=== PATIENT | female | born 1990 | race Caucasian/White ===

== ENCOUNTER 2017-02-05 12:18 | Inpatient (IN) | payer OTHER ==
[2017-02-05] MEDS ORDERED: SODIUM CHLORIDE 0.9% 1,000 ML IV STA (12:41)
[2017-02-05] MEDS ORDERED: RX INFO: IV CONTRAST WAS GIVEN 1 EACH MISC MISCELLANE PRN (12:41)
[2017-02-05] MEDS ORDERED: ACETAMINOPHEN TAB 500 MG TAB PO STA (12:49)
[2017-02-05] MEDS ORDERED: ONDANSETRON ODT 4 MG TAB PO STA (12:49)
[2017-02-05] MEDS ORDERED: HYDROmorphone 1 MG/ML 1 ML SYRINGE IVP STA (12:49)
--- NOTE | 2017-02-05 12:55 | ED ---
Abdominal Pain HPI - General Source: patient, RN notes reviewed Mode of arrival: ambulatory Limitations: no limitations <Cirilo Guerin - Last Filed: 02/05/17 14:14> <Luis Carlos Novak - Last Filed: 02/05/17 14:37> - General Chief Complaint: Abdominal Pain Stated Complaint: Abd/Side Pain Time Seen by Provider: 02/05/17 12:41 - History of Present Illness Initial Comments: 27-year-old female presents emergency Department for right-sided abdominal pain , not feeling well. She states that symptoms started on Monday which she notes her urine was darker than usual and have followed her. She denies any dysuria. Patient denies any vaginal bleeding or vaginal discharge. Denies any chance . Patient states she does have mental cycle 2 weeks ago. Patient states that she did not know she had a fever at home with his febrile here. She has not taken Tylenol or Motrin. She states that movement makes her abdominal pain worse. She states it does radiate to her right flank, back region also. She has no history kidney stones. 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 (Cirilo Guerin) - Related Data Home Medications Medication Instructions Recorded Confirmed Ibuprofen [Motrin] 1,000 mg PO Q6HR PRN 02/05/17 02/05/17 Allergies Allergy/AdvReac Type Severity Reaction Status Date / Time morphine Allergy Unknown Verified 02/05/17 12:39 Review of Systems ROS Other: All systems not noted in ROS Statement are negative. <Cirilo Guerin - Last Filed: 02/05/17 14:14> ROS Other: All systems not noted in ROS Statement are negative. <Luis Carlos Novak - Last Filed: 02/05/17 14:37> ROS Statement: Those systems with pertinent positive or pertinent negative responses have been documented in the HPI. Past Medical History Past Medical History: No Reported History History of Any Multi-Drug Resistant Organisms: None Reported Past Surgical History: Bowel Resection Past Psychological History: No Psychological Hx Reported Smoking Status: Current every day smoker Past Alcohol Use History: Occasional Past Drug Use History: None Reported <Cirilo Guerin - Last Filed: 02/05/17 14:14> General Exam Limitations: no limitations General appearance: alert, in no apparent distress Respiratory exam: Present: normal lung sounds bilaterally. Absent: respiratory distress, wheezes, rales, rhonchi, stridor Cardiovascular Exam: Present: normal rhythm, tachycardia, normal heart sounds. Absent: systolic murmur, diastolic murmur, rubs, gallop, clicks GI/Abdominal exam: Present: soft, tenderness (Moderate right-sided abdominal tenderness), normal bowel sounds. Absent: distended, guarding, rebound, rigid Back exam: Present: CVA tenderness (R). Absent: CVA tenderness (L) Neurological exam: Present: alert, oriented X3, CN II-XII intact Skin exam: Present: warm, dry, intact, normal color. Absent: rash <Cirilo Guerin - Last Filed: 02/05/17 14:14> Course <Cirilo Guerin - Last Filed: 02/05/17 14:14> <Luis Carlos Novak - Last Filed: 02/05/17 14:37> Vital Signs 02/05/17 02/05/17 12:23 14:13 Temperature 101.2 F H 99.4 F Pulse Rate 124 H 72 Respiratory 18 18 Rate Blood Pressure 120/72 99/57 O2 Sat by Pulse 99 95 Oximetry - Reevaluation(s) Reevaluation #1: 02/05/17 14:36 The patient initially was offered admission versus going home she doesn't want to go home but now was seen in the hospital this is reasonable. Patient does have pyelonephritis. I did review the workup and do agree with the disposition. I did discuss case with the hospitalist . Patient will be admitted and continued on Rocephin and IV fluids. (Luis Carlos Novak) Medical Decision Making - Lab Data Result diagrams: 02/05/17 13:05 02/05/17 13:05 <Cirilo Guerin - Last Filed: 02/05/17 14:14> - Lab Data Result diagrams: 02/05/17 13:05 02/05/17 13:05 <Luis Carlos Novak - Last Filed: 02/05/17 14:37> - Lab Data Lab Results 02/05/17 02/05/17 02/05/17 Range/Units 12:58 12:58 13:05 WBC (3.8-10.6) k/uL RBC (3.80-5.40) m/uL Hgb (11.4-16.0) gm/dL Hct (34.0-46.0) % MCV (80.0-100.0) fL MCH (25.0-35.0) pg MCHC (31.0-37.0) g/dL RDW (11.5-15.5) % Plt Count (150-450) k/uL Neutrophils % % Lymphocytes % % Monocytes % % Eosinophils % % Basophils % % Neutrophils # (1.3-7.7) k/uL Lymphocytes # (1.0-4.8) k/uL Monocytes # (0-1.0) k/uL Eosinophils # (0-0.7) k/uL Basophils # (0-0.2) k/uL Sodium 137 (137-145) mmol/L Potassium 3.9 (3.5-5.1) mmol/L Chloride 101 (98-107) mmol/L Carbon Dioxide 26 (22-30) mmol/L Anion Gap 10 mmol/L BUN 10 (7-17) mg/dL Creatinine 0.77 (0.52-1.04) mg/dL Est GFR (MDRD) Af Amer >60 (>60 ml/min/1.73 sqM) Est GFR (MDRD) Non-Af >60 (>60 ml/min/1.73 sqM) Glucose 120 H (74-99) mg/dL Plasma Lactic Acid Paolo (0.7-2.0) mmol/L Calcium 8.9 (8.4-10.2) mg/dL Total Bilirubin 0.9 (0.2-1.3) mg/dL AST 20 (14-36) U/L ALT 24 (9-52) U/L Alkaline Phosphatase 82 (38-126) U/L Total Protein 7.2 (6.3-8.2) g/dL Albumin 3.9 (3.5-5.0) g/dL Amylase 49 (30-110) U/L Lipase 37 (23-300) U/L Urine Color Yellow Urine Appearance Cloudy H (Clear) Urine pH 6.0 (5.0-8.0) Ur Specific [place] 1.015 (1.001-1.035) Urine Protein 1+ H (Negative) Urine Glucose (UA) Negative (Negative) Urine Ketones Negative (Negative) Urine Blood Moderate H (Negative) Urine Nitrite Positive H (Negative) Urine Bilirubin Negative (Negative) Urine Urobilinogen 2.0 (<2.0) mg/dL Ur Leukocyte Esterase Large H (Negative) Urine RBC 11 H (0-5) /hpf Urine WBC >182 H (0-5) /hpf Urine WBC Clumps Many H (None) /hpf Ur Squamous Epith Cells 4 (0-4) /hpf Urine Bacteria Moderate H (None) /hpf Urine Mucus Occasional H (None) /hpf Urine HCG, Qual Not Detected (Not Detectd) 02/05/17 02/05/17 Range/Units 13:05 13:05 WBC 17.0 H (3.8-10.6) k/uL RBC 4.78 (3.80-5.40) m/uL Hgb 14.8 (11.4-16.0) gm/dL Hct 43.9 (34.0-46.0) % MCV 91.7 (80.0-100.0) fL MCH 31.0 (25.0-35.0) pg MCHC 33.8 (31.0-37.0) g/dL RDW 13.4 (11.5-15.5) % Plt Count 202 (150-450) k/uL Neutrophils % 87 % Lymphocytes % 4 % Monocytes % 6 % Eosinophils % 2 % Basophils % 1 % Neutrophils # 14.9 H (1.3-7.7) k/uL Lymphocytes # 0.7 L (1.0-4.8) k/uL Monocytes # 1.0 (0-1.0) k/uL Eosinophils # 0.3 (0-0.7) k/uL Basophils # 0.1 (0-0.2) k/uL Sodium (137-145) mmol/L Potassium (3.5-5.1) mmol/L Chloride (98-107) mmol/L Carbon Dioxide (22-30) mmol/L Anion Gap mmol/L BUN (7-17) mg/dL Creatinine (0.52-1.04) mg/dL Est GFR (MDRD) Af Amer (>60 ml/min/1.73 sqM) Est GFR (MDRD) Non-Af (>60 ml/min/1.73 sqM) Glucose (74-99) mg/dL Plasma Lactic Acid [place] 1.2 (0.7-2.0) mmol/L Calcium (8.4-10.2) mg/dL Total Bilirubin (0.2-1.3) mg/dL AST (14-36) U/L ALT (9-52) U/L Alkaline Phosphatase (38-126) U/L Total Protein (6.3-8.2) g/dL Albumin (3.5-5.0) g/dL Amylase (30-110) U/L Lipase (23-300) U/L Urine Color Urine Appearance (Clear) Urine pH (5.0-8.0) Ur Specific [place] (1.001-1.035) Urine Protein (Negative) Urine Glucose (UA) (Negative) Urine Ketones (Negative) Urine Blood (Negative) Urine Nitrite (Negative) Urine Bilirubin (Negative) Urine Urobilinogen (<2.0) mg/dL Ur Leukocyte Esterase (Negative) Urine RBC (0-5) /hpf Urine WBC (0-5) /hpf Urine WBC Clumps (None) /hpf Ur Squamous Epith Cells (0-4) /hpf Urine Bacteria (None) /hpf Urine Mucus (None) /hpf Urine HCG, Qual (Not Detectd) Disposition Time of Disposition: 14:16 <Cirilo Guerin - Last Filed: 02/05/17 14:14> <Luis Carlos Novak - Last Filed: 02/05/17 14:37> Clinical Impression: Pyelonephritis Disposition: ADMITTED IP TO THIS HOSP Condition: Good Referrals: Dwight King DO [Primary Care Provider] - 1-2 days
[2017-02-05 13:10] LABS: Appearance,Urine Cloudy (Clear); Bacteria,Urine Moderate /hpf; Bilirubin,Urine Negative (Negative); Glucose,Urine (UA) Negative (Negative); Ketones,Urine Negative (Negative); Leukocyte Esterase,Urine Large (Negative); Mucus,Urine Occasional /hpf; Nitrite,Urine Positive (Negative); Particle Count 120340; Protein,Urine 1+ (Negative); RBC,Urine 11 /hpf (0-5); Specific Gravity,Urine 1.015 (1.001-1.035); Squamous Epithelial Cell,Urine 4 /hpf (0-4); UA Billing (MACRO vs. MICRO) MICRO; WBC,Urine >182 /hpf (0-5)
[2017-02-05 13:21] LABS: Basophils # (A) 0.1 k/uL (0-0.2); Basophils % (A) 1 %; CH 30.7; CHCM 33.6; Eosinophils # (A) 0.3 k/uL (0-0.7); Eosinophils % (A) 2 %; HCT 43.9 % (34.0-46.0); HDW 2.16; HGB 14.8 gm/dL (11.4-16.0); Luc # (Auto) 0.14; Luc % (Auto) 1; Lymphocytes # (A) 0.7 k/uL (1.0-4.8); Lymphocytes % (A) 4 %; MCHC 33.8 g/dL (31.0-37.0); MCV 91.7 fL (80.0-100.0); Mean Platelet Volume 7.6; Monocytes % (A) 6 %; Neutrophils # (A) 14.9 k/uL (1.3-7.7); Neutrophils % (A) 87 %; RBC 4.78 m/uL (3.80-5.40); RDW 13.4 % (11.5-15.5); WBC (Perox) 17.18
[2017-02-05 13:29] LABS: ALT 24 U/L (9-52); AST 20 U/L (14-36); Alkaline Phosphatase 82 U/L (38-126); Amylase 49 U/L (30-110); Anion Gap 10 mmol/L; Blood Urea Nitrogen 10 mg/dL (7-17); Calcium 8.9 mg/dL (8.4-10.2); Carbon Dioxide 26 mmol/L (22-30); Chloride 101 mmol/L (98-107); Glucose 120 mg/dL (74-99); Non-African American GFR(MDRD) >60 (>60 ml/min/1.73 sqM); Potassium 3.9 mmol/L (3.5-5.1); Sodium 137 mmol/L (137-145); Total Bilirubin 0.9 mg/dL (0.2-1.3); Total Protein 7.2 g/dL (6.3-8.2)
--- NOTE | 2017-02-05 13:56 | CT ---
EXAMINATION TYPE: CT abdomen pelvis w con DATE OF EXAM: 02/05/2017 1:45 PM COMPARISON: NONE HISTORY: Patient complains of right flank pain x2 days. CT DLP: 442.2 mGycm Automated exposure control for dose reduction was used. TECHNIQUE: Helical acquisition of images was performed from the lung bases through the pelvis. CONTRAST: Performed without Oral Contrast and with IV Contrast, patient injected with 100 mL of Omnipaque 300. FINDINGS: The lung bases are clear. There is no pleural effusion. Liver spleen pancreas gallbladder appear normal. Bile ducts are not dilated. There is no adrenal mass . There is a 2 cm area of hypodensity in the lateral right kidney. There is also a poorly marginated 3 cm area of hypodensity in the posterior right kidney and also 2 cm in the posterior lower pole righ t kidney. The left kidney shows normal contrast opacification. There is no hydronephrosis. There is no retroperitoneal adenopathy. There is no ascites. There is alba y minimal right side perinephric edema. I see no intestinal wall thickening. There are no dilated loops. Appendix is not seen. I see no sign of appendicitis. Bladder distends smoothly. There is no sign of a pelvic mass. Uterus is retroverted. The bony structures are intact. IMPRESSION: THERE ARE ARE MULTIPLE PATCHY AREAS OF DECREASED ENHANCEMENT IN THE RIGHT KIDNEY. NO HYDRONEPHROSIS. MINIMAL RIGHT-SIDED PERINEPHRIC EDEMA. THIS IS CONSISTENT WITH MULTIFOCAL PYELONEPHRITIS.
[2017-02-05] MEDS ORDERED: ONDANSETRON 4 MG/2 ML VIAL IVP PRN (14:17)
[2017-02-05] MEDS ORDERED: NALOXONE 0.4 MG/ML 1 ML VIAL IV PRN (14:17)
[2017-02-05] MEDS ORDERED: IBUPROFEN 400 MG TAB PO PRN (14:17)
[2017-02-05] MEDS: SODIUM CHLORIDE 0.9% 1,000 ML IV SCH ×2 (14:55→18:11)
[2017-02-05 15:46] VITALS: BMI 25.7
[2017-02-05] MEDS: HYDROmorphone 1 MG/ML 1 ML SYRINGE IV PRN ×2 (16:15→20:23)
[2017-02-06] MEDS: ACETAMINOPHEN TAB 325 MG TAB PO PRN ×3 (00:21→15:28)
[2017-02-06] MEDS: HYDROmorphone 1 MG/ML 1 ML SYRINGE IV PRN ×3 (00:22→10:53)
[2017-02-06] MEDS: SODIUM CHLORIDE 0.9% 1,000 ML IV SCH ×4 (04:14→23:00)
[2017-02-06] MEDS: KETOROLAC 30 MG/ML 1 ML VIAL IVP PRN ×2 (15:28→21:34)
--- NOTE | 2017-02-06 16:26 | HP ---
DATE OF ADMISSION: 02/05/2017 The patient is a pleasant 27 -year-old female who came in with complaints of right-sided flank pain sharp in nature radiating to the groin area. The patient's symptoms started on Monday, resolved and started again yesterday and patient was complaining of pain about 8/10 in severity, sharp in nature, radiation as mentioned above. Patient was found to have pyelonephritis in the right side with perinephric stranding and patient was started on Rocephin and was subsequently admitted with IV fluids and patient still has pain but significantly improved. Patient had fevers here. Patient has high-grade fever of 103. Patient still has low-grade fevers today. Urine cultures and blood cultures were ordered and the results of which are pending. Actually I do have urine culture, which is showing gram-negative bacilli. Patient had urinary tract infection 3 or 4 times in the past. Patient is sexually active. Denied any nausea, vomiting, denied any diarrhea. Patient was having dysuria as well. Home medications include: Ibuprofen. ROS: All other systems were reviewed and were negative. PAST MEDICAL HISTORY: None. PAST SURGICAL HISTORY: Bowel resection. SOCIAL HISTORY: The patient does smoke. Denied any alcohol abuse or any drug abuse. FAMILY HISTORY: Significant for hypertension in the family, rheumatoid arthritis and lupus in the family. PHYSICAL EXAMINATION: Temperature 98.8, pulse of 108, respiratory of 18, blood pressure is 117/63, saturating at 96% on room air. GENERAL: The patient is alert and oriented x3, not in any acute distress. Well developed, well nourished. HEENT: Pupils are round and equally reacting to light. EOMI. No scleral icterus. No conjunctival pallor. Normocephalic, atraumatic. No pharyngeal erythema. No thyromegaly. CARDIOVASCULAR: S1 and S2 present. No murmurs, rubs, or gallops. PULMONARY: Chest is clear to auscultation, no wheezing or crackles. ABDOMEN: Patient has right costovertebral angle tenderness. MUSCULOSKELETAL: No joint swelling or deformity. EXTREMITIES: No cyanosis, clubbing, or pedal edema. NEUROLOGICAL: Gross neurological examination did not reveal any focal deficits. SKIN: No rashes. LABORATORY DATA: CT of the abdomen as mentioned above and WBC count 17,000. Urine microbiology as mentioned above. ASSESSMENT AND PLAN: 1. Severe sepsis secondary to urinary tract infection and pyelonephritis. Patient is on antibiotics IV fluids, which will be continued. I do not have a lactic acid available at this point of time and we will continue with present medications. 2. Tachycardia secondary to sepsis as mentioned above. 3. Leukocytosis secondary to sepsis as mentioned above. Plan is to continue the present antibiotics and patient is afebrile. By tomorrow if we get the urine culture and sensitivities patient can be discharged tomorrow on antibiotics as per urine culture sensitivities. DIMPLED
[2017-02-06] MEDS: FAMOTIDINE 20 MG TAB PO SCH (21:34)
[2017-02-07] MEDS: ACETAMINOPHEN TAB 325 MG TAB PO PRN (00:16)
[2017-02-07] MEDS: SODIUM CHLORIDE 0.9% 1,000 ML IV SCH ×2 (02:40→09:11)
[2017-02-07] MEDS: KETOROLAC 30 MG/ML 1 ML VIAL IVP PRN ×2 (05:33→12:07)
[2017-02-07] MEDS: FAMOTIDINE 20 MG TAB PO SCH (07:21)
[2017-02-07 07:30] LABS: Anion Gap 8 mmol/L; Blood Urea Nitrogen 8 mg/dL (7-17); Calcium 8.3 mg/dL (8.4-10.2); Carbon Dioxide 24 mmol/L (22-30); Chloride 109 mmol/L (98-107); Glucose 101 mg/dL (74-99); Non-African American GFR(MDRD) >60 (>60 ml/min/1.73 sqM); Potassium 3.6 mmol/L (3.5-5.1); Sodium 141 mmol/L (137-145)
[2017-02-07 07:32] LABS: CHCM 32.7; HCT 32.8 % (34.0-46.0); HDW 2.29; MCH 30.5 pg (25.0-35.0); MCV 92.4 fL (80.0-100.0); RBC 3.55 m/uL (3.80-5.40); RDW 13.4 % (11.5-15.5); WBC 6.4 k/uL (3.8-10.6)
[2017-02-07 07:34] LABS: HGB 10.8 gm/dL (11.4-16.0)
[2017-02-07 11:42] VITALS: RESP 20
[2017-02-07] MEDS ORDERED: HYDROcodone/APAP 5-325MG 1 EACH TAB PO PRN (14:30)
[2017-02-07 16:22] VITALS: BP 113/61; PULSE 57; TEMP 98
--- NOTE | 2017-02-10 14:28 | DS ---
DATE OF ADMISSION: 02/05/2017 DATE OF DISCHARGE: 02/07/2017 DISCHARGE DIAGNOSES: 1. Severe sepsis secondary to urinary tract infection and pyelonephritis. 2. Acute right multifocal pyelonephritis. 3. Sinus tachycardia secondary to infection. 4. Leukocytosis secondary to infection, improved now. 5. Escherichia coli urinary tract infection. HOSPITAL COURSE: Ms. Matos is a 27-year-old female without significant past medical history, admitted to the hospital with complaints of abdominal pain, radiating from right loin to groin which is sharp and associated with subjective fever. Patient had a CT of abdomen and pelvis, was done in the ER showed right-sided multifocal pyelonephritis. Patient was started on antibiotics in the form of ceftriaxone. Patient did improve symptomatically and antibiotics have been changed to ciprofloxacin for a total duration of 14 days. Patient is symptomatically much improved now. No complaints of abdominal pain and tolerating p.o. diet and ambulating well. Patient was advised to follow with a primary care physician. DISCHARGE PHYSICAL EXAMINATION: A 27-year-old female, lying in bed comfortably, awake, alert and oriented x3. No focal deficits. VITALS: Blood pressure is 113/61, pulse is 57, respirations 20, temperature afebrile, pulse ox 97% on room air. LABORATORY DATA: Reviewed. Discharge physical examination done. Discharge medications include: 1. Ibuprofen 1000 mg p.o. q.6 hourly p.r.n. for pain. 2. Ciprofloxacin 500 mg p.o. q.12 hours for 12 days. 3. [place] 5/325 one tablet p.o. q.6 hourly p.r.n. for pain. Patient will be discharged home in a stable condition. Activity as tolerated. Regular diet. Follow up with Dr. Dwight King.
== END 2017-02-07 17:15 | disposition home or self-care (01) | DRG 872 ==
LOC: EC 12:18 → 6PED 14:35
PROVIDERS: ADMIT Internal Medicine; ATTEND Internal Medicine
DX: A41.9 Sepsis, unspecified organism (principal); Q43.1 Hirschsprung's disease; N12 Tubulo-interstitial nephritis, not specified as acute or chronic; N39.0 Urinary tract infection, site not specified; F17.200 Nicotine dependence, unspecified, uncomplicated; R65.20 Severe sepsis without septic shock; Z82.49 Family history of ischemic heart disease and other diseases of the circulatory system; B96.20 Unspecified Escherichia coli [E. coli] as the cause of diseases classified elsewhere
CPT/HCPCS: 36415; 74177; 80048; 80053; 81001; 81025; 82150; 83605; 83690; 85025; 85027; 87040; 87077; 87086; 87186; 96361; 96365; 96375; 99285

== ENCOUNTER 2019-06-25 11:40 | Emergency (ER) | payer OTHER ==
[2019-06-25 11:48] VITALS: RESP 18
--- NOTE | 2019-06-25 12:06 | ED ---
Female Urogenital HPI - General Chief complaint: Vaginal Bleeding Stated complaint: female , abd pain Time Seen by Provider: 06/25/19 11:53 Source: patient Mode of arrival: ambulatory Limitations: no limitations - History of Present Illness Initial comments: 29-year-old. Presents today for chief complaint of on and off vaginal bleeding for the past month. Patient states that she has had vaginal bleeding for the past month she states that it has been sometimes brown other times heavier. Patient states she is she does not bleed for a month straight. Patient denies any contraceptive use. Patient states she is unsure . Patient denies any significant pain states she occasionally has had cramping including the onset cramping about 3 days ago which feels as though she is having a. She states it is mostly left-sided and comparison with the right she denies any severe pain she denies nausea vomiting diarrhea or fever. Patient denies any significant discharge dysuria urgency frequency. Remaining review of systems negative. Upon arrival patient appears well signs of acute distress. Appears comfortable, no signs of distress. - Related Data Home Medications Medication Instructions Recorded Confirmed Ibuprofen [Motrin] 1,000 mg PO Q6HR PRN 02/05/17 02/05/17 Previous Rx's Medication Instructions Recorded Ciprofloxacin HCl [Cipro] 500 mg PO Q12HR 12 Days tablet 02/07/17 HYDROcodone/APAP 5-325MG [[place] 1 each PO Q6HR PRN #12 tab 02/07/17 5-325] Allergies Allergy/AdvReac Type Severity Reaction Status Date / Time No Known Allergies Allergy Verified 02/05/17 15:55 Review of Systems ROS Statement: Those systems with pertinent positive or pertinent negative responses have been documented in the HPI. ROS Other: All systems not noted in ROS Statement are negative. Past Medical History Past Medical History: No Reported History Additional Past Medical History / Comment(s): Hirschprung disease, kidney stones History of Any Multi-Drug Resistant Organisms: None Reported Past Surgical History: Bowel Resection Past Psychological History: No Psychological Hx Reported Smoking Status: Current every day smoker Past Alcohol Use History: Occasional Past Drug Use History: Marijuana - Past Family History Mother Family Medical History: Rheumatoid Arthritis (RA) Additional Family Medical History / Comment(s): lupus General Exam - General Exam Comments Initial Comments: General: The patient is awake and alert, in no distress, and does not appear acutely ill. Eye: Pupils are equal, round and reactive to light, extra-ocular movements are intact. No nystagmus. There is normal conjunctiva bilaterally. No signs of icterus. Cardiovascular: There is a regular rate and rhythm. No murmur, rub or gallop is appreciated. Respiratory: Lungs are clear to auscultation, respirations are non-labored, breath sounds are equal. No wheezes, stridor, rales, or rhonchi. Gastrointestinal: Soft, non-distended, non-tender abdomen without masses or organomegaly noted. There is no rebound or guarding present. Pelvic exam revealed no external lesions. Vaginal mucosa pink well rugated. Skin without discharge. As well as dark brown blood. Cervical os closed. No adnexal or cervical motion tenderness Musculoskeletal: Normal ROM, no tenderness. Strength 5/5. Sensation intact. Pulses equal bilaterally 2+. Neurological: A&O x 3. CN II-XII intact, There are no obvious motor or sensory deficits. Coordination appears grossly intact. Speech is normal. Skin: Skin is warm and dry and no rashes or lesions are noted. Psychiatric: Cooperative, appropriate mood & affect, normal judgment. Limitations: no limitations Course Vital Signs 06/25/19 06/25/19 11:46 14:26 Temperature 98.0 F 97.9 F Pulse Rate 90 60 Respiratory 18 18 Rate Blood Pressure 137/78 106/81 O2 Sat by Pulse 99 100 Oximetry Medical Decision Making - Medical Decision Making 29-year-old female presenting for low pelvic cramping, vaginal bleeding for the past month. That exam reveals no heavy bleeding small amount of scant brown blood. Patient has no cervical motion or adnexal tenderness. Ultrasound revealed a large ovarian cyst roughly 9 cm. No evidence of torsion. Patient appears comfortable. Abdominal exam benign. Cultures pending patient states sh e does not think she has STIs were weight until results are in for any necessary treatment. I recommended immedaite return for pain, heavy bleeding. Importance of f/u was discussed with patient who verbalized understanding of both the return parameters and importance of f/u. Discussed case with Dr. Malone prior to discharge home who was agreeable with care plan. - Lab Data Result diagrams: 06/25/19 13:00 06/25/19 13:00 Lab Results 06/25/19 06/25/19 06/25/19 Range/Units 13:00 13:00 14:17 WBC 8.7 (3.8-10.6) k/uL RBC 4.74 (3.80-5.40) m/uL Hgb 14.0 (11.4-16.0) gm/dL Hct 43.6 (34.0-46.0) % MCV 91.9 (80.0-100.0) fL MCH 29.6 (25.0-35.0) pg MCHC 32.2 (31.0-37.0) g/dL RDW 14.4 (11.5-15.5) % Plt Count 326 (150-450) k/uL Neutrophils % 58 % Lymphocytes % 26 % Monocytes % 6 % Eosinophils % 6 % Basophils % 1 % Neutrophils # 5.1 (1.3-7.7) k/uL Lymphocytes # 2.3 (1.0-4.8) k/uL Monocytes # 0.5 (0-1.0) k/uL Eosinophils # 0.6 (0-0.7) k/uL Basophils # 0.1 (0-0.2) k/uL Sodium 140 (137-145) mmol/L Potassium 4.3 (3.5-5.1) mmol/L Chloride 108 H (98-107) mmol/L Carbon Dioxide 23 (22-30) mmol/L Anion Gap 9 mmol/L BUN 13 (7-17) mg/dL Creatinine 0.65 (0.52-1.04) mg/dL Est GFR (CKD-EPI)AfAm >90 (>60 ml/min/1.73 sqM) Est GFR (CKD-EPI)NonAf >90 (>60 ml/min/1.73 sqM) Glucose 99 (74-99) mg/dL Calcium 9.2 (8.4-10.2) mg/dL Trichomonas Ag (Rapid) Negative (Negative) Disposition Clinical Impression: Ovarian cyst, Abnormal vaginal bleeding Disposition: HOME SELF-CARE Condition: Good Instructions (If sedation given, give patient instructions): Ovarian Cyst (ED) Additional Instructions: Please use medication as discussed. Please follow-up with OBGYN within next w [email or web address], please have repeat US within 3 months. Please return to emergency room if the symptoms increase or worsen or for any other concerns. Is patient prescribed a controlled substance at d/c from ED?: No Referrals: None,Stated [Primary Care Provider] - 1-2 days Jorge Woodall MD [STAFF PHYSICIAN] - 1-2 days Time of Disposition: 14:09
[2019-06-25 13:22] LABS: African American GFR (CKD) >90 (>60 ml/min/1.73 sqM); Anion Gap 9 mmol/L; Blood Urea Nitrogen 13 mg/dL (7-17); Calcium 9.2 mg/dL (8.4-10.2); Carbon Dioxide 23 mmol/L (22-30); Chloride 108 mmol/L (98-107); Glucose 99 mg/dL (74-99); Potassium 4.3 mmol/L (3.5-5.1); Sodium 140 mmol/L (137-145)
[2019-06-25 13:24] LABS: Basophils # (A) 0.1 k/uL (0-0.2); Basophils % (A) 1 %; Eosinophils # (A) 0.6 k/uL (0-0.7); Eosinophils % (A) 6 %; HCT 43.6 % (34.0-46.0); Lymphocytes # (A) 2.3 k/uL (1.0-4.8); Lymphocytes % (A) 26 %; MCH 29.6 pg (25.0-35.0); MCHC 32.2 g/dL (31.0-37.0); MCV 91.9 fL (80.0-100.0); Mean Platelet Volume 8.1; Monocytes # (A) 0.5 k/uL (0-1.0); Monocytes % (A) 6 %; Neutrophils # (A) 5.1 k/uL (1.3-7.7); Neutrophils % (A) 58 %; Platelet Count 326 k/uL (150-450); RBC 4.74 m/uL (3.80-5.40); RDW 14.4 % (11.5-15.5); WBC 8.7 k/uL (3.8-10.6)
--- NOTE | 2019-06-25 13:28 | US ---
EXAMINATION TYPE: US transvaginal DATE OF EXAM: 06/25/2019 COMPARISON: CT CLINICAL HISTORY: left sided pelvic pain, 2 days. Vaginal bleeding since 05-30-19; TECHNIQUE: Transvaginal (TV). Transvaginal sonographic images were provided on EC patient who state d had just emptied bladder. Date of LMP: 05/30/2019 EXAM MEASUREMENTS: Uterus: 7.3 x 5.4 x 4.5 cm Endometrial Stripe: 0.7 cm Right Ovary: 3.5 x 2.0 x1.3 cm Left Ovary: 9.8 x 6.7 x 6.3 cm 1. Uterus: Retroverted ; couple of Nabothian cysts in cervix with larger = 0.8 x1.0 x 1.2cm 2. Endometrium: unable to correlate thickness with month long menstrual cycle 3. Right Ovary: small follicles/ wnl 4. Left Ovary: abnormally enlarged ovary with multiple cysts of varying sizes, with ground glass int ernal echoes (possibly relating to endometriomas); largest of these = 5.4 x 5.0 x 5.0cm. The size pre disposes to ovarian torsion. Spectral, color and waveform Doppler imaging shows good arterial and venous flow within the ovaries ; there is no evidence for ovarian torsion. 5. Bilateral Adnexa: wnl 6. Posterior cul-de-sac: wnl IMPRESSION: Enlarged left ovary measuring up to 9.8 cm with multiple complex cysts measuring up to 5. 4 cm containing internal echoes. The size of the cyst and ovary predispose this patient to torsion ho wever no ovarian torsion is seen at the time of the examination. The appearance of this complex lesio n suggests either endometriomas are hemorrhagic cyst. Follow-up is recommended in 3 menstrual cycles to ensure resolution.
[2019-06-25 14:26] VITALS: BP 106/81; PULSE 60; TEMP 97.9
[2019-06-26 13:58] LABS: C. trachomatis,PCR Negative (Neg,Equiv); Chlamydia trachomatis Source Vagina; N. gonorrhoeae,PCR Negative (Neg,Equiv); Neisseria Source Vagina
== END 2019-06-25 14:26 | disposition home or self-care (01) ==
LOC: EC 11:40
DX: N83.202 Unspecified ovarian cyst, left side (principal); N93.9 Abnormal uterine and vaginal bleeding, unspecified; F17.200 Nicotine dependence, unspecified, uncomplicated; Z98.890 Other specified postprocedural states; Z87.442 Personal history of urinary calculi
CPT/HCPCS: 36415; 76830; 80048; 85025; 87070; 87491; 87591; 87808; 93975; 99284

== ENCOUNTER 2019-07-22 11:07 | Emergency (ER) | payer OTHER ==
[2019-07-22 11:14] VITALS: TEMP 98.8
[2019-07-22] MEDS ORDERED: KETOROLAC 30 MG/ML 1 ML VIAL IVP STA (11:48)
[2019-07-22] MEDS ORDERED: SODIUM CHLORIDE 0.9% 1,000 ML IV ONE ×2 (11:48)
[2019-07-22] MEDS ORDERED: ONDANSETRON 4 MG/2 ML VIAL IVP STA (11:49)
--- NOTE | 2019-07-22 11:52 | ED ---
Female Urogenital HPI - General Chief complaint: Urogenital Stated complaint: ovarian cyst Time Seen by Provider: 07/22/19 11:29 Source: patient, RN notes reviewed, old records reviewed Mode of arrival: ambulatory Limitations: no limitations - History of Present Illness Initial comments: Patient is a 29-year-old female presents emergency department today with 2 days of bloody stools, and abdominal pain. Patient reports that she also has been having any pain with laying on her left side. Te[place]eda large left ovarian cyst measuring 9 cm. This was done earlier this past month. She reports she's never had any significant pain until the past few days. Patient reports that she had multiple bloody bowel movements. 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 SHe does not have a OBGYN or GI doctor at this time. Last Menstrual Period: 07/08/19 - Related Data Home Medications Medication Instructions Recorded Confirmed Acetaminophen Tab [Tylenol Tab] 650 mg PO Q6H 07/22/19 07/22/19 Previous Rx's Medication Instructions Recorded Amoxic-Pot Clav 875-125Mg 1 tab PO BID 3 Days #6 tab 07/22/19 [Augmentin 875-125] Allergies Allergy/AdvReac Type Severity Reaction Status Date / Time No Known Allergies Allergy Verified 07/22/19 11:32 Review of Systems ROS Statement: Those systems with pertinent positive or pertinent negative responses have been documented in the HPI. ROS Other: All systems not noted in ROS Statement are negative. Past Medical History Past Medical History: No Reported History Additional Past Medical History / Comment(s): Hirschprung disease, kidney stones, ovarian cyst History of Any Multi-Drug Resistant Organisms: None Reported Past Surgical History: Bowel Resection Past Psychological History: No Psychological Hx Reported Smoking Status: Current every day smoker Past Alcohol Use History: Occasional Past Drug Use History: Marijuana - Past Family History Mother Family Medical History: Rheumatoid Arthritis (RA) Additional Family Medical History / Comment(s): lupus General Exam Limitations: no limitations General appearance: alert, in no apparent distress Head exam: Present: atraumatic, normocephalic, normal inspection Eye exam: Present: normal appearance, PERRL, EOMI. Absent: scleral icterus, conjunctival injection, periorbital swelling ENT exam: Present: normal exam, mucous membranes moist Neck exam: Present: normal inspection. Absent: tenderness, meningismus, lymphadenopathy Respiratory exam: Present: normal lung sounds bilaterally. Absent: respiratory distress, wheezes, rales, rhonchi, stridor Cardiovascular Exam: Present: regular rate, normal rhythm, normal heart sounds. Absent: systolic murmur, diastolic murmur, rubs, gallop, clicks GI/Abdominal exam: Present: soft, tenderness (Left uppper and LLQ tenderness), normal bowel sounds. Absent: distended, guarding, rebound, rigid External exam: Present: normal external exam Speculum exam: Present: normal speculum exam, vaginal discharge (minimal discharge. ). Absent: cervical discharge, vaginal bleeding By manual exam: Present: normal by manual exam. Absent: cervical motion tenderness, adnexal tenderness Extremities exam: Present: normal inspection, full ROM, normal capillary refill. Absent: tenderness, pedal edema, joint swelling, calf tenderness Back exam: Present: normal inspection Neurological exam: Present: alert, oriented X3, CN II-XII intact Psychiatric exam: Present: normal affect, normal mood Skin exam: Present: warm, dry, intact, normal color. Absent: rash Course Vital Signs 07/22/19 07/22/19 11:11 16:51 Temperature 98.8 F Pulse Rate 113 H 76 Respiratory 18 16 Rate Blood Pressure 113/79 142/76 O2 Sat by Pulse 98 99 Oximetry Medical Decision Making - Medical Decision Making Patient's 29-year-old female presents emergency room today for platelets of left-sided abdominal pain. She had a history of a large left ovarian cyst is sinus earlier this past month. She states she started having some abdominal pain past 2 days. She also history of bloody stools. Patient has some left upper left lower quadrant tenderness. On pelvic exam she has some minor discharge but no significant tenderness, no cervical motion tenderness was not ed. At this time patient's labwork was reviewed mild leukocytosis. Hemoglobin is stable. Fecal occult was positive. Ultrasound was completed and did show some decreased in size of her cyst measuring 5 cm as some concern for some hydrosalpinx. However clinical exam is no concern for PID she denies any concern for STDs since her last check. Her last pelvic exam she did have Gardnerella vaginalis, and was finished treatment with Flagyl. Patient conservatively stools did undergo CT. There is evidence of some distal colitis. I discussed the case with Dr. Wick,, recommended following up with ONCOLOGY RN. Discussed that Patient have worsening symptoms TO return here. Discussed can discharge the Patient a short course of Augmentin to treat for colitis. Patient's understands treatment plan will comply. Return parameters were discussed. - Lab Data Result diagrams: 07/22/19 11:55 07/22/19 11:55 Lab Results 07/22/19 07/22/19 07/22/19 Range/Units 11:45 11:45 11:45 WBC (3.8-10.6) k/uL RBC (3.80-5.40) m/uL Hgb (11.4-16.0) gm/dL Hct (34.0-46.0) % MCV (80.0-100.0) fL MCH (25.0-35.0) pg MCHC (31.0-37.0) g/dL RDW (11.5-15.5) % Plt Count (150-450) k/uL Neutrophils % % Lymphocytes % % Monocytes % % Eosinophils % % Basophils % % Neutrophils # (1.3-7.7) k/uL Lymphocytes # (1.0-4.8) k/uL Monocytes # (0-1.0) k/uL Eosinophils # (0-0.7) k/uL Basophils # (0-0.2) k/uL PT (9.0-12.0) sec INR (<1.2) Sodium (137-145) mmol/L Potassium (3.5-5.1) mmol/L Chloride (98-107) mmol/L Carbon Dioxide (22-30) mmol/L Anion Gap mmol/L BUN (7-17) mg/dL Creatinine (0.52-1.04) mg/dL Est GFR (CKD-EPI)AfAm (>60 ml/min/1.73 sqM) Est GFR (CKD-EPI)NonAf (>60 ml/min/1.73 sqM) Glucose (74-99) mg/dL Calcium (8.4-10.2) mg/dL Total Bilirubin (0.2-1.3) mg/dL AST (14-36) U/L ALT (9-52) U/L Alkaline Phosphatase (38-126) U/L Total Protein (6.3-8.2) g/dL Albumin (3.5-5.0) g/dL Urine Color Yellow Urine Appearance Cloudy H (Clear) Urine pH 6.0 (5.0-8.0) Ur Specific [place] 1.027 (1.001-1.035) Urine Protein 1+ H (Negative) Urine Glucose (UA) Negative (Negative) Urine Ketones 1+ H (Negative) Urine Blood Moderate H (Negative) Urine Nitrite Negative (Negative) Urine Bilirubin Negative (Negative) Urine Urobilinogen 2.0 (<2.0) mg/dL Ur Leukocyte Esterase Small H (Negative) Urine RBC 7 H (0-5) /hpf Urine WBC 6 H (0-5) /hpf Ur Squamous Epith Cells 15 H (0-4) /hpf Urine Mucus Many H (None) /hpf Urine HCG, Qual Not Detected (Not Detectd) Stool Occult Blood Positive H (Negative) Trichomonas Ag (Rapid) (Negative) 07/22/19 07/22/19 07/22/19 Range/Units 11:55 11:55 11:55 WBC 14.7 H (3.8-10.6) k/uL RBC 4.83 (3.80-5.40) m/uL Hgb 14.9 (11.4-16.0) gm/dL Hct 42.1 (34.0-46.0) % MCV 87.2 (80.0-100.0) fL MCH 30.8 (25.0-35.0) pg MCHC 35.3 (31.0-37.0) g/dL RDW 12.5 (11.5-15.5) % Plt Count 307 (150-450) k/uL Neutrophils % 77 % Lymphocytes % 13 % Monocytes % 4 % Eosinophils % 4 % Basophils % 1 % Neutrophils # 11.3 H (1.3-7.7) k/uL Lymphocytes # 1.9 (1.0-4.8) k/uL Monocytes # 0.6 (0-1.0) k/uL Eosinophils # 0.6 (0-0.7) k/uL Basophils # 0.1 (0-0.2) k/uL PT 10.8 (9.0-12.0) sec INR 1.0 (<1.2) Sodium 140 (137-145) mmol/L Potassium 3.9 (3.5-5.1) mmol/L Chloride 105 (98-107) mmol/L Carbon Dioxide 23 (22-30) mmol/L Anion Gap 12 mmol/L BUN 7 (7-17) mg/dL Creatinine 0.71 (0.52-1.04) mg/dL Est GFR (CKD-EPI)AfAm >90 (>60 ml/min/1.73 sqM) Est GFR (CKD-EPI)NonAf >90 (>60 ml/min/1.73 sqM) Glucose 109 H (74-99) mg/dL Calcium 9.7 (8.4-10.2) mg/dL Total Bilirubin 0.5 (0.2-1.3) mg/dL AST 22 (14-36) U/L ALT 18 (9-52) U/L Alkaline Phosphatase 74 (38-126) U/L Total Protein 7.7 (6.3-8.2) g/dL Albumin 4.2 (3.5-5.0) g/dL Urine Color Urine Appearance (Clear) Urine pH (5.0-8.0) Ur Specific [place] (1.001-1.035) Urine Protein (Negative) Urine Glucose (UA) (Negative) Urine Ketones (Negative) Urine Blood (Negative) Urine Nitrite (Negative) Urine Bilirubin (Negative) Urine Urobilinogen (<2.0) mg/dL Ur Leukocyte Esterase (Negative) Urine RBC (0-5) /hpf Urine WBC (0-5) /hpf Ur Squamous Epith Cells (0-4) /hpf Urine Mucus (None) /hpf Urine HCG, Qual (Not Detectd) Stool Occult Blood (Negative) Trichomonas Ag (Rapid) (Negative) 07/22/19 Range/Units 14:51 WBC (3.8-10.6) k/uL RBC (3.80-5.40) m/uL Hgb (11.4-16.0) gm/dL Hct (34.0-46.0) % MCV (80.0-100.0) fL MCH (25.0-35.0) pg MCHC (31.0-37.0) g/dL RDW (11.5-15.5) % Plt Count (150-450) k/uL Neutrophils % % Lymphocytes % % Monocytes % % Eosinophils % % Basophils % % Neutrophils # (1.3-7.7) k/uL Lymphocytes # (1.0-4.8) k/uL Monocytes # (0-1.0) k/uL Eosinophils # (0-0.7) k/uL Basophils # (0-0.2) k/uL PT (9.0-12.0) sec INR (<1.2) Sodium (137-145) mmol/L Potassium (3.5-5.1) mmol/L Chloride (98-107) mmol/L Carbon Dioxide (22-30) mmol/L Anion Gap mmol/L BUN (7-17) mg/dL Creatinine (0.52-1.04) mg/dL Est GFR (CKD-EPI)AfAm (>60 ml/min/1.73 sqM) Est GFR (CKD-EPI)NonAf (>60 ml/min/1.73 sqM) Glucose (74-99) mg/dL Calcium (8.4-10.2) mg/dL Total Bilirubin (0.2-1.3) mg/dL AST (14-36) U/L ALT (9-52) U/L Alkaline Phosphatase (38-126) U/L Total Protein (6.3-8.2) g/dL Albumin (3.5-5.0) g/dL Urine Color Urine Appearance (Clear) Urine pH (5.0-8.0) Ur Specific [place] (1.001-1.035) Urine Protein (Negative) Urine Glucose (UA) (Negative) Urine Ketones (Negative) Urine Blood (Negative) Urine Nitrite (Negative) Urine Bilirubin (Negative) Urine Urobilinogen (<2.0) mg/dL Ur Leukocyte Esterase (Negative) Urine RBC (0-5) /hpf Urine WBC (0-5) /hpf Ur Squamous Epith Cells (0-4) /hpf Urine Mucus (None) /hpf Urine HCG, Qual (Not Detectd) Stool Occult Blood (Negative) Trichomonas Ag (Rapid) Negative (Negative) - Radiology Data Radiology results: report reviewed Left ovarian cystic lesion appears slightly smaller than the prior on 06/25/2019 less internal complexity. Given the bleeding. Question are present hydrosalpinx ONCOLOGY RN consultation referred for violation for PID. Right ovarian lesion is developed to the interim with homogenous low interval echoes. Considerations are for endometriosis or endometrioma or hemorrhagic cyst.Computed tomography scan shows moderate segmental enteral narrowing and edematous thickening involving the sigmoid colon and rectum is just infectious or inflammatory colitis. Clinically correlate. Consider direct visualization after inflation is controlled. Bilateral adnexal cystic lesions measuring up to 5.2 cm in (3. recent recently. Further exam pelvic ultrasound. Ultrasound be performed. Disposition Clinical Impression: Colitis, Ovarian cyst Disposition: HOME SELF-CARE Condition: Good Instructions (If sedation given, give patient instructions): Ovarian Cyst (ED), Colitis (ED) Additional Instructions: Patient should've a clear liquid diet. Take the medications as prescribed. Return to the emergency department if any alarming signs or symptoms occur. Recommended follow-up with ONCOLOGY RN for ovarian cysts. Also recommended close follow-up with GI specialty. Return to the emergency department if any alarming signs or symptoms occur. Prescriptions: Amoxic-Pot Clav 875-125Mg [Augmentin 875-125] 1 tab PO BID 3 Days #6 tab Is patient prescribed a controlled substance at d/c from ED?: No Referrals: None,Stated [Primary Care Provider] - 1-[address] DO [Doctor of Osteopathic Medicine] - 1-2 days Malena Mares MD [STAFF PHYSICIAN] - 1-2 days Time of Disposition: 16:32
[2019-07-22 12:00] LABS: Appearance,Urine Cloudy (Clear); Bilirubin,Urine Negative (Negative); Blood,Urine Moderate (Negative); Color,Urine Yellow; Glucose,Urine (UA) Negative (Negative); Ketones,Urine 1+ (Negative); Leukocyte Esterase,Urine Small (Negative); Mucus,Urine Many /hpf; Nitrite,Urine Negative (Negative); Protein,Urine 1+ (Negative); RBC,Urine 7 /hpf (0-5); Specific Gravity,Urine 1.027 (1.001-1.035); Squamous Epithelial Cell,Urine 15 /hpf (0-4); WBC,Urine 6 /hpf (0-5)
[2019-07-22 12:14] LABS: Basophils # (A) 0.1 k/uL (0-0.2); Basophils % (A) 1 %; Eosinophils # (A) 0.6 k/uL (0-0.7); Eosinophils % (A) 4 %; HCT 42.1 % (34.0-46.0); HGB 14.9 gm/dL (11.4-16.0); Lymphocytes # (A) 1.9 k/uL (1.0-4.8); Lymphocytes % (A) 13 %; MCH 30.8 pg (25.0-35.0); MCHC 35.3 g/dL (31.0-37.0); MCV 87.2 fL (80.0-100.0); Mean Platelet Volume 6.7; Monocytes # (A) 0.6 k/uL (0-1.0); Monocytes % (A) 4 %; Neutrophils # (A) 11.3 k/uL (1.3-7.7); Neutrophils % (A) 77 %; Platelet Count 307 k/uL (150-450); RBC 4.83 m/uL (3.80-5.40); RDW 12.5 % (11.5-15.5); WBC 14.7 k/uL (3.8-10.6)
[2019-07-22 12:19] LABS: Prothrombin Time 10.8 sec (9.0-12.0)
[2019-07-22 12:22] LABS: ALT 18 U/L (9-52); AST 22 U/L (14-36); African American GFR (CKD) >90 (>60 ml/min/1.73 sqM); Albumin 4.2 g/dL (3.5-5.0); Alkaline Phosphatase 74 U/L (38-126); Anion Gap 12 mmol/L; Blood Urea Nitrogen 7 mg/dL (7-17); Calcium 9.7 mg/dL (8.4-10.2); Carbon Dioxide 23 mmol/L (22-30); Chloride 105 mmol/L (98-107); Glucose 109 mg/dL (74-99); Potassium 3.9 mmol/L (3.5-5.1); Sodium 140 mmol/L (137-145); Total Bilirubin 0.5 mg/dL (0.2-1.3); Total Protein 7.7 g/dL (6.3-8.2)
--- NOTE | 2019-07-22 13:28 | XR ---
EXAMINATION TYPE: XR KUB DATE OF EXAM: 07/22/2019 1:18 PM CLINICAL HISTORY: Left-sided abdominal pain. History of left ovarian cysts. TECHNIQUE: Upright image of the abdomen is obtained. COMPARISON: None. FINDINGS: Upper limits of normal size left hemicolon measuring up to 5.8 cm. Air is seen throughout t he sigmoid colon but absent within the rectum. No pneumoperitoneum is seen. No suspicious calcificati ons in the abdomen. Osseous structures are intact. IMPRESSION: Gaseous distention of the left hemicolon upper limits of normal. Findings likely relate t o colonic ileus. No pneumoperitoneum.
--- NOTE | 2019-07-22 14:25 | US ---
EXAMINATION TYPE: US transvaginal DATE OF EXAM: 07/22/2019 COMPARISON: Ultrasound dated 07/12/2019 of the pelvis CLINICAL HISTORY: left ovarian cyst hx. Left ovarian cyst seen in EC 3 weeks ago, pelvic pain now TECHNIQUE: TV. Transvaginal sonographic images Date of LMP: 07/08/2019 EXAM MEASUREMENTS: Uterus: 7.2 x 5.1 x 4.1 cm Endometrial Stripe: 1.3 cm Right Ovary: 3.9 x 3.6 x 3.5 cm Left Ovary: 6.5 x 4.1 x 7.6 cm 1. Uterus: Retroverted wnl 2. Endometrium: wnl 3. Right Ovary: 3.0 x 2.8cm lesion with homogeneous low-level internal echoes 4. Left Ovary: Serpiginous appearing anechoic areas measuring 6.3 x 3.0cm, previously measuring up to 9.8 cm. Spectral, color and waveform doppler imaging shows good arterial and venous flow within the ovaries ; there is no Doppler evidence for ovarian torsion. 5. Bilateral Adnexa: wnl 6. Posterior cul-de-sac: wnl IMPRESSION: 1. The left ovarian cystic lesion appears slightly smaller than the prior of 06/25/2019 and less consultant internship al complexity. Given the undulating appearance this is questioned to represent hydrosalpinx. WEATHER STRIPPER c onsultation is recommended as well as evaluation for pelvic inflammatory disease. 2. Right ovarian lesion has developed in the interim with homogeneous low-level internal echoes. Cons iderations are for endometriosis/endometrioma or hemorrhagic cyst.
[2019-07-22] MEDS ORDERED: MORPHINE SULFATE 4 MG/ML SYRINGE IVP STA (15:16)
--- NOTE | 2019-07-22 15:53 | CT ---
EXAMINATION TYPE: CT abdomen pelvis w con DATE OF EXAM: 07/22/2019 COMPARISON: 02/05/2017 HISTORY: 29-year-old female left side pelvic pain, ovarian cysts. Bloody stool. History of Hirschspru ng's disease. TECHNIQUE: Contiguous axial scanning of the abdomen and pelvis following administration of 100 ml Iso david 300 IV contrast. Delayed images through the kidneys and coronal/sagittal reconstructions perform ed. CT DLP: 995.3 mGycm Automated exposure control for dose reduction was used. FINDINGS: Heart normal size without pericardial effusion. Lung bases clear without pleural effusion. No focal lesion or biliary ductal dilatation. Portal venous system is patent. Gallbladder, adrenal glands, right kidney, spleen, and pancreas appear within normal limits. Stable cortical defect medial left kidney suggesting sequela of prior infectious or vascular insult. No dilated small bowel, free fluid, or free air. Few borderline sized left para-aortic retroperitoneal lymph nodes measuring up to 6 mm probably react kirsten/post inflammatory. Normal appendix. Borderline air distention of the colon measuring up to 5.8 cm. Segmental areas of annular narrowing and edematous wall thickening extending from the proximal sigmoi d to rectum. Multiple moderate presacral edema. Uterus retroverted. Left ovarian cyst measures up to 5.2 cm right ovarian cyst measures up to 3.3 cm. These are new from 02/05/2017. Mild left cul-de-sac free fluid. Bones: No osseous destructive process. IMPRESSION: 1. MODERATE SEGMENTAL ANNULAR NARROWING AND EDEMATOUS THICKENING INVOLVING THE SIGMOID COLON AND RECT UM SUGGESTS AN INFECTIOUS OR INFLAMMATORY COLITIS. CLINICALLY CORRELATE. CONSIDER DIRECT VISUALIZATIO N AFTER INFLAMMATION IS CONTROLLED. 2. BILATERAL ADNEXAL CYSTIC LESIONS MEASURING UP TO 5.2 CM ON THE LEFT AND 3.3 CM ON THE RIGHT. REFER TO FINDINGS ON PELVIC ULTRASOUND SAME DAY. ULTRASOUND FOLLOW-UP CAN BE PERFORMED.
[2019-07-22] MEDS ORDERED: traMADol 50 MG STARTER PACK 3 TAB BTL PO STA (16:33)
[2019-07-22] MEDS ORDERED: AMOXIC-POT CLAV 875MG STARTER 2 EACH TABLET PO STA (16:33)
[2019-07-22 16:52] VITALS: BP 142/76; PULSE 76; RESP 16
[2019-07-23 15:25] LABS: C. trachomatis,PCR Negative (Neg,Equiv); Chlamydia trachomatis Source Vagina; N. gonorrhoeae,PCR Negative (Neg,Equiv); Neisseria Source Vagina
== END 2019-07-22 16:57 | disposition home or self-care (01) ==
LOC: EC 11:07
DX: N83.202 Unspecified ovarian cyst, left side (principal); K52.9 Noninfective gastroenteritis and colitis, unspecified; D72.829 Elevated white blood cell count, unspecified; Z87.442 Personal history of urinary calculi
CPT/HCPCS: 36415; 80053; 85025; 85610; 82272; 81001; 81025; 87808; 87491; 87591; 87070; 74018; 76830; 74177; 99285; 96374; 96375 ×2; 96361 ×5; J2270; J2405; J1885; Q9967

== ENCOUNTER 2020-05-03 09:22 | Emergency (ER) | payer OTHER ==
[2020-05-03 09:27] VITALS: BP 130/79; PULSE 111; RESP 20; TEMP 98.3
--- NOTE | 2020-05-03 09:45 | ED ---
Skin/Abscess/FB HPI - General Chief complaint: Skin/Abscess/Foreign Body Stated complaint: Sunburn Time Seen by Provider: 05/03/20 09:35 Source: patient Mode of arrival: ambulatory Limitations: no limitations - History of Present Illness Initial comments: Patient is a 30-year-old female presenting to emergency Department with complaints of a sunburn irritation and is now blistering x 1 week. Patient states approximately 8-9 days ago she suffered a sunburn to her upper chest, back, upper arms. Patient states she did have some blistering in the area. 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 Patient states she presents today because the area is now super itchy, peeling, dry, scabs to the area. She denies any fever or chills. She states she has not been putting a lotion on the area. She has no further complaints at this time. - Related Data Previous Rx's Medication Instructions Recorded Mupirocin 2% Oint [Bactroban 2% 1 applic TOPICAL BID 5 Days #1 tube 05/03/20 Oint] Allergies Allergy/AdvReac Type Severity Reaction Status Date / Time No Known Allergies Allergy Verified 05/03/20 09:27 Review of Systems ROS Statement: Those systems with pertinent positive or pertinent negative responses have been documented in the HPI. ROS Other: All systems not noted in ROS Statement are negative. Past Medical History Past Medical History: No Reported History Additional Past Medical History / Comment(s): Hirschprung disease, kidney stones, ovarian cyst History of Any Multi-Drug Resistant Organisms: None Reported Past Surgical History: Bowel Resection Past Psychological History: No Psychological Hx Reported Smoking Status: Current every day smoker Past Alcohol Use History: Occasional Past Drug Use History: Marijuana - Past Family History Mother Family Medical History: Rheumatoid Arthritis (RA) Additional Family Medical History / Comment(s): lupus General Exam - General Exam Comments Initial Comments: GENERAL: Well-appearing, well-nourished and in no acute distress. HEAD: Atraumatic, normocephalic. EYES: Pupils equal round and reactive to light, extraocular movements intact, sclera anicteric, conjunctiva are normal. ENT: Nares patent, oropharynx clear without exudates. Moist mucous membranes. NECK: Normal range of motion, supple without lymphadenopathy or JVD. LUNGS: Breath sounds clear to auscultation bilaterally and equal. No wheezes rales or rhonchi. HEART: Regular rate and rhythm without murmurs, rubs or gallops. ABDOMEN: Soft, nontender, normoactive bowel sounds. No guarding, no rebound. No masses appreciated. : Deferred EXTREMITIES: Normal range of motion, no pitting or edema. No clubbing or cyanosis. NEUROLOGICAL: Normal speech, normal gait. PSYCH: Normal mood, normal affect. SKIN: Warm, Dry, normal turgor. Patient has a first-degree sunburn to her chest area as well as a healing first degree burn on her upper back, bilateral upper arms. Limitations: no limitations Course Vital Signs 05/03/20 09:25 Temperature 98.3 F Pulse Rate 111 H Respiratory 20 Rate Blood Pressure 130/79 O2 Sat by Pulse 100 Oximetry Medical Decision Making - Medical Decision Making Patient is a 30-year-old female here with a first-degree sunburn x 1 week. Chen nburn in the chest area is dry, cracking, flaking. I recommended topical antibiotic twice a day and keep the area well moisturized. She does not need oral antibiotic for this time. She is afebrile. She is stable for discharge. Recommended following up with her PCP if symptoms persist. Patient is agreement with this plan of care. Case discussed with Dr. Alonzo. Disposition Clinical Impression: Sunburn of first degree Disposition: HOME SELF-CARE Condition: Stable Instructions (If sedation given, give patient instructions): Sunburn (ED) Additional Instructions: Please return to the Emergency Department if symptoms worsen or any other concerns. Use topical antibiotic as discussed twice a day. Keep the area well moisturized. Prescriptions: Mupirocin 2% Oint [Bactroban 2% Oint] 1 applic TOPICAL BID 5 Days #1 tube Is patient prescribed a controlled substance at d/c from ED?: No Referrals: None,Stated [Primary Care Provider] - 1-2 days
== END 2020-05-03 10:08 | disposition home or self-care (01) ==
LOC: EC 09:22
DX: L55.0 Sunburn of first degree (principal); F17.200 Nicotine dependence, unspecified, uncomplicated
CPT/HCPCS: 99282